=== PATIENT | male | born 1990 | race Caucasian/White ===

== ENCOUNTER 2017-12-27 01:31 | Emergency (ER) | payer OTHER ==
[2017-12-27 01:40] VITALS: BP 129/86; PULSE 97; TEMP 98.4; BMI 25.7
--- NOTE | 2017-12-27 01:45 | PDOC ---
History of Present Illness - General Chief Complaint: Injury Stated Complaint: SLAMMED CAR DOOR ON RIGHT THUMB Time Seen by Provider: 12/27/17 01:43 Past History - Past Medical History Allergies/Adverse Reactions: Allergies Allergy/AdvReac Type Severity Reaction Status Date / Time No Known Allergies Allergy Verified 12/27/17 01:32 Home Medications: Ambulatory Orders Gabapentin 300 mg PO DAILY 12/27/17 COPD: No Other medical history: BACK PAIN - Suicide/Smoking/Psychosocial Hx Smoking History: Never smoked Have you smoked in the past 12 months: No Information on smoking cessation initiated: No Hx Alcohol Use: No Drug/Substance Use Hx: No Substance Use Type: None *Physical Exam - Vital Signs Last Vital Signs Temp Pulse Resp BP Pulse Ox 98.4 F 97 H 16 129/86 98 12/27/17 01:34 12/27/17 01:34 12/27/17 01:34 12/27/17 01:34 12/27/17 01:34 *DC/Admit/Observation/Transfer Diagnosis at time of Disposition: Finger contusion Qualifiers: Encounter type: initial encounter Finger: thumb Damage to nail status: with damage Laterality: right Qualified Code(s): S60.111A - Contusion of right thumb with damage to nail, initial encounter - Discharge Dispostion Disposition: HOME Condition at time of disposition: Stable Admit: No - Referrals - Patient Instructions Additional Instructions: Continue to take naproxen, Motrin or Tylenol as needed and as directed on the box for the pain. Continue to elevate and ice. Return to the emergency department immediately with ANY new, persistent or worsening symptoms. Continue any medications as previously prescribed by your physician. You should follow up with your primary doctor as soon as possible regarding today's emergency department visit. . Please make sure your doctor reviews the results of your emergency evaluation. Thank you for coming to the Emergency Department today for your care. It was a pleasure to see you today. Please note that your evaluation is INCOMPLETE until you follow-up with your doctor. - Post Discharge Activity
[2017-12-27] MEDS ORDERED: KETOROLAC TROMETHAMINE 60 MG/2 ML VIAL IM ONE (01:58)
[2017-12-27] MEDS ORDERED: KETOROLAC TROMETHAMINE 60 MG/2 ML VIAL ONE (01:59)
--- NOTE | 2017-12-27 02:30 | PDOC ---
*Physical Exam - Vital Signs Last Vital Signs Temp Pulse Resp BP Pulse Ox 98.4 F 97 H 16 129/86 98 12/27/17 01:34 12/27/17 01:34 12/27/17 01:34 12/27/17 01:34 12/27/17 01:34 ED Treatment Course - RADIOLOGY Radiology Studies Ordered: Category Date Time Status FINGER(S) RIGHT [RAD] Stat Radiology 12/27/17 01:44 Ordered HAND- RIGHT [RAD] Stat Radiology 12/27/17 01:44 Ordered - Medications Given in the ED: ED Medications Discontinued Medications Generic Name Dose Route Start Last Admin Trade Name Freq PRN Reason Stop Dose Admin Ketorolac Tromethamine 60 mg 12/27/17 01:58 12/27/17 02:05 Toradol Injection - IM 12/27/17 01:59 60 mg ONCE ONE Administration Progress Note - Progress Note Progress Note: This chart was opened as the original chart was signed prior to me documenting my evaluations of this chart is for documentation purposes This is a 27-year-old male who slammed his hand in a car door approximately 12 hours ago. Patient comes in complaining of pain in his right thumb. Patient took Ibuprofen, Tylenol and a gabapentin. Patient denies any other injuries. PAST MEDICAL HISTORY: no significant history PAST SURGICAL HISTORY: no significant history FAMILY HISTORY: no pertinant history SOCIAL HISTORY: Pt lives with family and is employed. MEDICATIONS: reviewed ALLERGIES: As per nursing notes Review of Systems General: No fevers or chills, no weakness, no weight loss HEENT: No change in vision. No sore throat,. No ear pain CardioVascular: No chest pain or shortness of breath Respiratory:No cough, or wheezing. Gastrointestinal: no nausea, vomitting, diarrhea or constipation, No rectal bleeding Genitourinary: No dysuria, hematuria, or frequency Musculoskeletal: No joint or muscle pain or swelling Neurologic: No headache, vertigo, dizziness or loss of consciousness Psychiatric: nor depression Skin: No rashes or easy bruising Endocrine: no increased thirst or abnormal weight change Allergic: no skin or latex allergy All other systems reviewed and normal GENERAL: The patient is awake, alert, and fully oriented, in no acute distress. HEAD: Normal with no signs of trauma. EYES: Pupils equal, round and reactive to light, extraocular movements intact, sclera anicteric, conjunctiva clear. EXTREMITIES: Right thumb there is a contusion and small sublingual hematoma approximately less than 10% of the nailbed at the base of the right thumb. There is also tenderness on the left area of the scaphoid with some swelling and ecchymosis to the thenar eminence in the area. Neurovascular distal is intact. NEUROLOGICAL: Normal speech, normal gait. grossly intact PSYCH: Normal mood, normal affect. SKIN: Warm, Dry, normal turgor, no rashes or lesions noted. X-ray questionable scaphoid fracture Procedure note OCL thumb spica splint applied to right hand neurovascular post application intact. Assessment and plan: This is a 27-year-old male with probable scaphoid fracture secondary to slamming his hand in a door. Patient put in a thumb spica splint even an orthopedic follow-up and discharged home with prescription for Percocet. *DC/Admit/Observation/Transfer Diagnosis at time of Disposition: Finger contusion, Fracture of scaphoid bone of hand, Subungual hematoma of right thumb - Discharge Dispostion Disposition: HOME Condition at time of disposition: Stable Admit: No - Prescriptions Prescriptions: Acetaminophen [8Hr Arthritis Pain Relief] 650 mg PO QID #30 tablet.er Oxycodone HCl/Acetaminophen [Percocet 5-325 mg Tablet] 1 - 2 tab PO Q4H #20 tablet MDD 8 - Referrals - Patient Instructions Additional Instructions: Continue to take naproxen, Motrin or Tylenol as needed and as directed on the box for the pain. If he needs something stronger take Percocet one to 2 tablets every 4-6 hours however it will make you drowsy so do not take it if you need to drive or do anything that requires your concentration Continue to elevate and ice. Wear the sling while awake U do not need to wear it at night in bed as he may get tangled up in it Call Dr. Will at [phone] in the morning for an appointment Return to the emergency department immediately with ANY new, persistent or worsening symptoms. Continue any medications as previously prescribed by your physician. You should follow up with your primary doctor as soon as possible regarding today's emergency department visit. . Please make sure your doctor reviews the results of your emergency evaluation. Thank you for coming to the Emergency Department today for your care. It was a pleasure to see you today. Please note that your evaluation is INCOMPLETE until you follow-up with your doctor. - Post Discharge Activity
== END 2017-12-27 02:11 | disposition home or self-care (01) ==
LOC: FER 01:31
PROC: 3E0233Z Introduction of Anti-inflammatory into Muscle, Percutaneous Approach (ICD-10-PCS; principal; 2017-12-27)
DX: S60.111A Contusion of right thumb with damage to nail, initial encounter (principal); W23.0XXA Caught, crushed, jammed, or pinched between moving objects, initial encounter; Y93.89 Activity, other specified; Y92.9 Unspecified place or not applicable
CPT/HCPCS: 73130-TC-RT-FY; 99281-25

== ENCOUNTER 2017-12-27 06:04 | Emergency (ER) | payer OTHER ==
[2017-12-27 06:12] VITALS: BP 148/104; PULSE 115; TEMP 97.6; BMI 25.7
--- NOTE | 2017-12-27 06:18 | PDOC ---
History of Present Illness - General Chief Complaint: Pain, Acute Stated Complaint: RETURN FOR PAIN RIGHT THUMB/FX Time Seen by Provider: 12/27/17 06:12 History Source: Patient Exam Limitations: No Limitations - History of Present Illness Initial Comments: 12/27/17 06:13 This is a 27-year-old male who comes in a second time for pain right thumb. Patient was here earlier and diagnosed with a probable scaphoid fracture he also had a very small subtle ungual hematoma that was not drained at that time. Patient now returns in tears saying that his thumb is throbbing and he is unable to sleep PAST MEDICAL HISTORY: no significant history PAST SURGICAL HISTORY: no significant history FAMILY HISTORY: no pertinant history SOCIAL HISTORY: Pt lives with family and is employed. MEDICATIONS: reviewed ALLERGIES: As per nursing notes Review of Systems General: No fevers or chills, no weakness, no weight loss HEENT: No change in vision. No sore throat,. No ear pain CardioVascular: No chest pain or shortness of breath Respiratory:No cough, or wheezing. Gastrointestinal: no nausea, vomitting, diarrhea or constipation, No rectal bleeding Genitourinary: No dysuria, hematuria, or frequency Musculoskeletal: Right hand/thumb. The hand and thumb are both well perfused, the sub-ungual hematoma is increased in size from when I saw him before. Neurovascular is intact. Neurologic: No headache, vertigo, dizziness or loss of consciousness Psychiatric: nor depression Skin: No rashes or easy bruising Endocrine: no increased thirst or abnormal weight change Allergic: no skin or latex allergy All other systems reviewed and normal GENERAL: The patient is awake, alert, and fully oriented, in no acute distress. HEAD: Normal with no signs of trauma. EYES: Pupils equal, round and reactive to light, extraocular movements intact, sclera anicteric, conjunctiva clear. EXTREMITIES: Normal range of motion, no edema. NEUROLOGICAL: Normal speech, normal gait. grossly intact PSYCH: Normal mood, normal affect. SKIN: Warm, Dry, normal turgor, no rashes or lesions noted. Procedure note trephination subungual hematoma: The subungual hematoma was drained the electrocautery there is a moderate amount of blood that drained. Patient tolerated well Assessment and plan: This is a 27-year-old male who returns second time for severe pain in his right thumb. Patient subungual hematoma has increased in size and was the source of his increased pain. I drained the hematoma with marked improvement in his discomfort and symptoms. He was also given some Percocet and discharged home. Past History - Past Medical History Allergies/Adverse Reactions: Allergies Allergy/AdvReac Type Severity Reaction Status Date / Time No Known Allergies Allergy Verified 12/27/17 06:05 Home Medications: Ambulatory Orders Acetaminophen [8Hr Arthritis Pain Relief] 650 mg PO QID #30 tablet.er 12/27/17 Gabapentin 300 mg PO DAILY 12/27/17 Oxycodone HCl/Acetaminophen [Percocet 5-325 mg Tablet] 1 - 2 tab PO Q4H #20 tablet MDD 8 12/27/17 COPD: No Other medical history: DENIES - Suicide/Smoking/Psychosocial Hx Smoking History: Never smoked Have you smoked in the past 12 months: No Information on smoking cessation initiated: No Hx Alcohol Use: No Drug/Substance Use Hx: No Substance Use Type: None *Physical Exam - Vital Signs Last Vital Signs Temp Pulse Resp BP Pulse Ox 97.6 F 115 H 20 148/104 100 12/27/17 06:08 12/27/17 06:08 12/27/17 06:08 12/27/17 06:08 12/27/17 06:08 *DC/Admit/Observation/Transfer Diagnosis at time of Disposition: Subungual hematoma of right thumb - Discharge Dispostion Disposition: HOME Condition at time of disposition: Stable Admit: No - Referrals - Patient Instructions Additional Instructions: Take Percocet one or 2 tablets every 4-6 hours if needed. Follow-up with the orthopedist that you were given earlier Dr. Will. Phone number is [phone]. Return to the emergency department immediately with ANY new, persistent or worsening symptoms. Continue any medications as previously prescribed by your physician. You should follow up with your primary doctor as soon as possible regarding today's emergency department visit. . Please make sure your doctor reviews the results of your emergency evaluation. Thank you for coming to the Emergency Department today for your care. It was a pleasure to see you today. Please note that your evaluation is INCOMPLETE until you follow-up with your doctor. - Post Discharge Activity
== END 2017-12-27 06:40 | disposition home or self-care (01) ==
LOC: FER 06:04
DX: S60.111A Contusion of right thumb with damage to nail, initial encounter (principal); X58.XXXD Exposure to other specified factors, subsequent encounter; S60.111D Contusion of right thumb with damage to nail, subsequent encounter; Y93.9 Activity, unspecified
CPT/HCPCS: 99281-25